=== PATIENT | male | born 1950 | race Caucasian/White ===

== ENCOUNTER 2018-08-08 09:42 | Emergency (ER) | payer MEDICARE, OTHER ==
[~2018-08-08] VITALS: Ht 195.6 cm; Wt 86.2 kg
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
[2018-08-08] MEDS ORDERED: LIDOCAINE/EPI 2% 1:100,00 (XYLOCAINE) 20 ML VIAL INJ ONE (10:15)
--- NOTE | 2018-08-08 12:40 | Diagnostic Imaging Report ---
INDICATION: Head and facial injury. CT brain findings: Noncontrast brain CT is performed. There are no extra-axial fluid collections. No intracranial hemorrhage. No intracranial mass or mass effect. No midline shift. The ventricles are normal in size and position. There are no focal parenchymal abnormalities in the brain. Calvarial windows show no calvarial fracture. CT maxillofacial findings: Axial slices are obtained with sagittal and coronal reconstructions without contrast. There are bilateral nasal fractures with leftward displacement of the distal fragments by about 2 mm. There are no other fractures visualized. The maxillary sinuses, sphenoid sinuses, and ethmoid air cells appear clear. The frontal sinuses appear clear. There is no intraorbital hematoma. There is soft tissue swelling in the paranasal region. IMPRESSION: CT head shows no acute intracranial abnormality. CT maxillofacial demonstrates comminuted nasal bone fractures with some angulation and leftward displacement. Remaining bony structures are intact. Dictated by: Dictated on workstation # [id number]
[2018-08-08] MEDS ORDERED: CEPH500T PO (13:02)
[2018-08-08 13:20] VITALS: BP 140/84
== END 2018-08-08 13:25 | disposition home or self-care (01) ==
LOC: ER FS 09:45
DX: S02.2XXA Fracture of nasal bones, initial encounter for closed fracture (principal); S01.81XA Laceration without foreign body of other part of head, initial encounter; R40.2142 Coma scale, eyes open, spontaneous, at arrival to emergency department; R40.2252 Coma scale, best verbal response, oriented, at arrival to emergency department; R40.2362 Coma scale, best motor response, obeys commands, at arrival to emergency department; E78.00 Pure hypercholesterolemia, unspecified; Z90.49 Acquired absence of other specified parts of digestive tract; W22.09XA Striking against other stationary object, initial encounter
CPT/HCPCS: 70450; 70486

== ENCOUNTER → 2018-08-15 | Outpatient (CLI) | payer MEDICARE, OTHER ==
[~2018-08-15] MED LIST: CEPH500T PO
--- NOTE | 2018-08-15 13:22 | Diagnostic Imaging Report ---
INDICATION: Injury to right fourth finger. AP, oblique, and lateral views of the right hand are obtained. There is no prior study for comparison. No fracture or acute bony abnormality is seen. There is mild diffuse degenerative change of the interphalangeal joints. There is a well-defined lucency in the scaphoid with rounded appearance, likely a benign lesion. IMPRESSION: No acute abnormality of right hand. Underlying degenerative findings. Benign bone lesion in the scaphoid is noted. Dictated by: Dictated on workstation # [id number]
== END ==
LOC: RAD FS 10:44
PROVIDERS: ATTEND Nurse Practitioner
DX: S69.91XA Unspecified injury of right wrist, hand and finger(s), initial encounter (principal); M19.041 Primary osteoarthritis, right hand; M89.9 Disorder of bone, unspecified
CPT/HCPCS: 73130

== ENCOUNTER → 2019-03-23 | Outpatient (CLI) | payer MEDICARE, OTHER ==
--- NOTE | 2019-03-23 08:38 | Diagnostic Imaging Report ---
HISTORY: Right shoulder pain TECHNIQUE: 3 views of the right shoulder COMPARISON: None FINDINGS: There are marked degenerative changes at the right acromioclavicular joint. The glenohumeral joint appears normal. Alignment is normal. No acute fracture is seen. IMPRESSION: 1. Marked degenerative change at the right acromioclavicular joint with no acute osseous abnormality seen. Dictated by: Dictated on workstation # [id number]
== END ==
LOC: RAD FS 08:25
PROVIDERS: ATTEND Nurse Practitioner
DX: M19.011 Primary osteoarthritis, right shoulder (principal)
CPT/HCPCS: 73030

== ENCOUNTER → 2019-10-17 | Outpatient (CLI) | payer MEDICARE, OTHER | LOC: LABNPT 06:00 | PROVIDERS: ATTEND Internal Medicine Cardiovascular Disease | DX: Z20.828 Contact with and (suspected) exposure to other viral communicable diseases (principal); Z53.8 Procedure and treatment not carried out for other reasons ==

== ENCOUNTER → 2019-10-24 | Outpatient (CLI) | payer MEDICARE, OTHER | LOC: LABNPT 05:45 | PROVIDERS: ATTEND Internal Medicine Cardiovascular Disease | DX: Z20.828 Contact with and (suspected) exposure to other viral communicable diseases (principal); Z53.8 Procedure and treatment not carried out for other reasons ==

== ENCOUNTER → 2019-10-24 | Outpatient (CLI) | payer MEDICARE, OTHER | LOC: LAB FS 11:01 | PROVIDERS: ATTEND Internal Medicine Cardiovascular Disease | DX: R07.89 Other chest pain (principal); Z20.828 Contact with and (suspected) exposure to other viral communicable diseases | CPT/HCPCS: 87635 ==

== ENCOUNTER → 2021-04-11 | Outpatient (CLI) | payer MEDICARE, OTHER ==
--- NOTE | 2021-04-11 10:17 | Diagnostic Imaging Report ---
INDICATION: Neck pain. TIME OF EXAM: 9:42 AM AP, lateral, odontoid as well as lateral flexion and extension views of the cervical spine were obtained. The neutral lateral view does show degenerative disc disease C5-C6 and C6-C7 levels with disc space narrowing and marginal spurring. No motion is identified during flexion or extension maneuvers. Prevertebral tissues are normal. Odontoid is intact. No fractures are seen. IMPRESSION: Lower cervical spondylosis. No acute bony abnormality is seen. No abnormal motion during flexion or extension maneuvers is identified. Dictated by: Dictated on workstation # [id number]
== END ==
LOC: RAD FS 08:56
PROVIDERS: ATTEND Nurse Practitioner
DX: M47.812 Spondylosis without myelopathy or radiculopathy, cervical region (principal)
CPT/HCPCS: 72050

== ENCOUNTER → 2022-06-04 | Outpatient (CLI) | payer MEDICARE, OTHER ==
--- NOTE | 2022-06-04 11:56 | Diagnostic Imaging Report ---
FOOT 3 VIEW RIGHT INDICATION: Right foot pain COMPARISON: None available. TECHNIQUE: 3 views of the right foot FINDINGS: No acute fracture. Old healed fracture of the 5th proximal phalanx. Alignment is normal. Moderate hypertrophic degenerative changes of 1st MTP. Bipartite medial hallux sesamoid. Small dorsal and plantar calcaneal spurs. 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 Dictated by: Dictated on workstation # [id number]
== END ==
LOC: RAD FS 09:10
PROVIDERS: ATTEND Nurse Practitioner
DX: M19.071 Primary osteoarthritis, right ankle and foot (principal)
CPT/HCPCS: 73630